=== PATIENT | female | born 1965 | race Caucasian/White ===

== ENCOUNTER 2016-06-30 08:52 | Emergency (ER) | payer MEDICAID ==
[~2016-06-30] VITALS: Ht 162.6 cm; Wt 85.7 kg
[~2016-06-30 08:52] MED LIST: XOPENEX HF0.045 MG/A IH
[2016-06-30 08:57] VITALS: BP 132/95
[2016-06-30] MEDS ORDERED: GOOD SENSE OMEP20 MG PO (09:07)
--- NOTE | 2016-06-30 09:14 | NUR ---
Patient ambulated to bed 3 with family. RN evaluating patient at bedside.
--- NOTE | 2016-06-30 09:20 | NUR ---
50/F BIB FAMILY MEMBER COULD NOT SLEEP LAST NIGHT DUE TO NECK PAIN, STS 9/10 AT THIS TIME. DESCRIBES PAIN STIFF AND UNABLE TO TURN EITHER SIDE. PT ADMITS TRIPPED GLF X 6 DAYS AGO AND HIT HEAD AGAINST TUB ON RIGHT SIDE. DENIES LOC. ALSO STS INTERMITTENT SHARP ANTERIOR CHEST WALL PAIN X 2 DAYS. HX ASTHMA, ANXIETY, ARTHRITIS, GASTRITIS. DENIES TAKING AN PAIN MEDS TODAY. DENIES FEVER. VSS. SAFETY AND COMFORT MEASURES PROVIED. ER AWARE.
--- NOTE | 2016-06-30 09:30 | NUR ---
Patient being evaluated by physician at bedside.
[2016-06-30] MEDS ORDERED: traMADol 50 MG TAB PO ONE (09:50)
[2016-06-30] MEDS ORDERED: ACETAMINOPHEN 325 MG TAB PO ONE (09:50)
[2016-06-30 10:30] VITALS: BP 139/89
--- NOTE | 2016-06-30 10:30 | NUR ---
Patient discharged with v/s stable. Written and verbal after care instructions given and explained. Patient alert, oriented and verbalized understanding of instructions. Ambulatory with steady gait with daughter. All questions addressed prior to discharge. ID band removed. Patient advised to follow up with PMD. Rx of tramadol given. Patient educated on indication of medication including possible reaction and side effects. Opportunity to ask questions provided and answered.
== END 2016-06-30 10:30 | disposition home or self-care (01) ==
LOC: MED 08:54
DX: M54.2 Cervicalgia (principal); R07.89 Other chest pain; J45.909 Unspecified asthma, uncomplicated; K21.9 Gastro-esophageal reflux disease without esophagitis

== ENCOUNTER 2019-04-12 17:16 | Emergency (ER) | payer MEDICAID ==
[~2019-04-12] VITALS: Ht 162.6 cm; Wt 85.7 kg
[~2019-04-12 17:16] MED LIST changes: +LEVA0.043 IH; +OMEP20TC12 PO; -XOPENEX HF0.045 MG/A IH
[2019-04-12 17:22] VITALS: BP 151/80
--- NOTE | 2019-04-12 17:32 | NUR ---
53/F PRESENTS TO ED WITH MOTHER, C/O R FOOT/ANKLE PAIN, S/P R FOOT INVERSION YESTERDAY AFTER GETTING UP FROM TOILET. DENIES HEAD TRAUMA. R FOOT WITH MILD SWELLING, TENDER TO TOUCH, +CMS DISTALLY. PT AWAKE AND ALERT, SKIN NORMAL COLOR WARM AND DRY, RR EVEN AND UNLABORED. HX ASTHMA, RA, ANXIETY RX VALIUM, ALBUTEROL INH AND NEB
--- NOTE | 2019-04-12 17:32 | NUR ---
PT AMBULATED WITH MINIMAL ASSIST FROM MOTHER/FAMILY
--- NOTE | 2019-04-12 17:48 | NUR ---
XRAY AT BEDSIDE
[2019-04-12 18:40] VITALS: BP 132/75
--- NOTE | 2019-04-12 18:40 | NUR ---
Patient discharged with v/s stable. Written and verbal after care instructions given and explained. Patient alert, oriented and verbalized understanding of instructions. Ambulatory with steady gait. All questions addressed prior to discharge. ID band removed. Patient advised to follow up with PMD. Rx of NORCO, IBUPROFEN given. Patient educated on indication of medication including possible reaction and side effects. Opportunity to ask questions provided and answered.
== END 2019-04-12 18:01 | disposition home or self-care (01) ==
LOC: MED 17:16
DX: S93.401A Sprain of unspecified ligament of right ankle, initial encounter (principal); J45.909 Unspecified asthma, uncomplicated; K21.9 Gastro-esophageal reflux disease without esophagitis; F41.9 Anxiety disorder, unspecified; Z79.899 Other long term (current) drug therapy; X58.XXXA Exposure to other specified factors, initial encounter; Y93.89 Activity, other specified; Y92.89 Other specified places as the place of occurrence of the external cause; Y99.8 Other external cause status
CPT/HCPCS: 73610; 73630; 99283; Q0092

== ENCOUNTER 2019-05-07 05:34 | Emergency (ER) | payer MEDICAID ==
[~2019-05-07] VITALS: Ht 160 cm; Wt 86.2 kg
[2019-05-07 05:45] VITALS: BP 151/85
[2019-05-07] MEDS ORDERED: ALBUTEROL SULFATE/IPRATROPIU 3 ML SOL IH ONE (05:55)
[2019-05-07] MEDS ORDERED: FAMOTIDINE 20 MG TAB PO ONE (05:55)
[2019-05-07] MEDS ORDERED: methylPREDNISolone SS 125 MG/2 ML VIAL IM ONE (05:55)
--- NOTE | 2019-05-07 05:56 | NUR ---
53 YO F BIB SELF PRESENTS TO ED C/O ITCHY RASH THAT HAS BEEN COMING AND GOING X 2 WEEKS. PT STATES TODAY IT SPREAD TO HER EYES AND STARTED HAVING TROUBLE BREATHING. REPORTS HX OF ASTHMA BUT HAS NOT NEEDED TO USE INHALER FOR SEVERAL MONTHS. MILD RED, RAISED HIVES NOTED TO ABDOMEN AND BACK. PERIORBITAL EDEMA NOTED. MILD INSPIRATORY WHEEZING HEARD THROUGHOUT. SPO2 98% ON RA. PT SPEAKS IN CLEAR, FULL SENTENCES. DENIES DIFFICULTY SWALLOWING. NO INCREASED WOB OR DISTRESS NOTED. SKIN NORMAL FOR ETHNICITY, WARM, DRY. DENIES PAIN, ONLY ITCHINESS. PT APPEARS MILDLY ANXIOUS. PMH-- ASTHMA, ANXIETY, ARTHRITIS
--- NOTE | 2019-05-07 06:08 | NUR ---
EMT AT BEDSIDE FOR EKG.
--- NOTE | 2019-05-07 06:16 | NUR ---
FINISH SAW OPERATOR AT BEDSIDE. BREATHING TX IN PROGRESS.
--- NOTE | 2019-05-07 06:30 | NUR ---
PT REPORTS FEELING BETTER. BREATHING EVEN, UNLABORED. SPO2 99% ON RA. LUNGS CTA. PT STATES ITCHING AND RASH RESOLVED.
[2019-05-07 07:34] VITALS: BP 148/88
--- NOTE | 2019-05-07 07:34 | NUR ---
Patient discharged with v/s stable. Written and verbal after care instructions given and explained. Patient alert, oriented and verbalized understanding of instructions. Ambulatory with steady gait. All questions addressed prior to discharge. ID band removed. Patient advised to follow up with PMD. Rx of ALBUTEROL,PEPCID,PREDNISONE,BENADRYL given. Patient educated on indication of medication including possible reaction and side effects. Opportunity to ask questions provided and answered.
== END 2019-05-07 07:34 | disposition home or self-care (01) ==
LOC: MED 05:34
DX: T78.49XA Other allergy, initial encounter (principal); J45.901 Unspecified asthma with (acute) exacerbation; K21.9 Gastro-esophageal reflux disease without esophagitis; Z79.899 Other long term (current) drug therapy
CPT/HCPCS: 71045; 93005; 94640; 96372; 99283; J2930; J7620; Q0163

== ENCOUNTER 2019-06-21 08:35 | Emergency (ER) | payer MEDICAID ==
[~2019-06-21] VITALS: Ht 162.6 cm; Wt 85.3 kg
[2019-06-21 08:38] VITALS: BP 122/82
--- NOTE | 2019-06-21 08:45 | NUR ---
AMBULATED TO BED 3 W/ STEADY GAIT
[2019-06-21] MEDS ORDERED: ALBUTEROL SULFATE/IPRATROPIU 3 ML SOL IH ONE (08:55)
[2019-06-21] MEDS ORDERED: IBUPROFEN 800 MG TAB PO ONE (08:55)
--- NOTE | 2019-06-21 09:00 | NUR ---
PT C/O INTERMITTENT ONSET RASH X 4 DAYS, STARTED IN ABDOMINAL AND INNER THIGH AREA AND SPREAD ALL OVER BODY. -FEVER, +EAR ACHE, +HEADACHE, +SORE THROAT. NO MEDS TAKEN. NO RASH NOTICE AT THIS TIME. PATIENT STATES PAIN OF 8/10 AT THIS TIME; VSS; PATIENT POSITIONED FOR COMFORT; HOB ELEVATED; BEDRAILS UP X1; BED DOWN. ER MD MADE AWARE OF PT STATUS.
[2019-06-21] MEDS ORDERED: ACETAMINOPHEN EXTRA STRENGTH 500 MG TAB PO ONE (09:25)
[2019-06-21 09:39] VITALS: BP 116/78
--- NOTE | 2019-06-21 09:39 | NUR ---
Patient discharged with v/s stable. Written and verbal after care instructions given and explained. Patient alert, oriented and verbalized understanding of instructions. Ambulatory with steady gait. All questions addressed prior to discharge. ID band removed. Patient advised to follow up with PMD. Rx of Tylenol, Azithromycin, Tylenol given. Patient educated on indication of medication including possible reaction and side effects. Opportunity to ask questions provided and answered.
== END 2019-06-21 09:39 | disposition home or self-care (01) ==
LOC: MED 08:35
DX: J02.9 Acute pharyngitis, unspecified (principal); B96.89 Other specified bacterial agents as the cause of diseases classified elsewhere; L25.9 Unspecified contact dermatitis, unspecified cause; R51 Headache; H92.01 Otalgia, right ear; J45.901 Unspecified asthma with (acute) exacerbation; K21.9 Gastro-esophageal reflux disease without esophagitis; F41.9 Anxiety disorder, unspecified; Z79.899 Other long term (current) drug therapy
CPT/HCPCS: 94640; 99283; 99284

== ENCOUNTER 2021-01-22 08:18 | Emergency (ER) | payer MEDICAID ==
[~2021-01-22] VITALS: Ht 162.6 cm; Wt 90.3 kg
[~2021-01-22 08:18] MED LIST changes: +OMEP-278 PO; -OMEP20TC12 PO
[2021-01-22 08:24] VITALS: BP 152/88
--- NOTE | 2021-01-22 08:30 | NUR ---
C/O BODY RASH X LAST NIGHT. AND C/O DARK SKIN ON FEET, AND LOWER LEGS NUMBNESS X 1 YEAR PMH: ASTHMAPT DENIES N/V/D; SKIN IS RASH, FLUSH/WARM/DRY; AAOX4, PERRL, WITH EVEN AND STEADY GAIT; LUNGS CLEAR BL, BREATHING UNLABORED; HR EVEN AND REGULAR, BL PERIPHERAL PULSES PRESENT; BS ACTIVE X4, NO TENDERNESS TO PALPATION. PT DENIES ANY FEVER, CP, SOB, OR COUGH AT THIS TIME; PT STATES 3/10 PAIN AT THIS TIME; VSS; PATIENT POSITIONED FOR COMFORT; HOB ELEVATED; BEDRAILS UP X2; BED DOWN.
[2021-01-22] MEDS ORDERED: PRED20TA5 PO (08:40)
[2021-01-22] MEDS ORDERED: BEN50 PO (08:40)
[2021-01-22 08:54] VITALS: BP 147/82
--- NOTE | 2021-01-22 08:59 | NUR ---
Patient discharged with v/s stable. Written and verbal after care instructions given and explained. Patient alert, oriented and verbalized understanding of instructions. Ambulatory with steady gait. All questions addressed prior to discharge. ID band removed. Patient advised to follow up with PMD. Rx of BENADRYL, DELTASONE given. Patient educated on indication of medication including possible reaction and side effects. Opportunity to ask questions provided and answered.
== END 2021-01-22 08:54 | disposition home or self-care (01) ==
LOC: MED 08:23
DX: R21 Rash and other nonspecific skin eruption (principal); J45.909 Unspecified asthma, uncomplicated; K21.9 Gastro-esophageal reflux disease without esophagitis; Z98.890 Other specified postprocedural states; Z79.899 Other long term (current) drug therapy
CPT/HCPCS: 99283

== ENCOUNTER 2022-09-05 20:18 | Emergency (ER) | payer MEDICAID ==
[~2022-09-05 20:18] MED LIST changes: +BEN50 PO; +PRED20TA5 PO
--- NOTE | 2022-09-05 21:30 | NUR ---
Unable to locate pt in [facility].
[2022-09-06] MEDS ORDERED: ALBU0.0912 IH ×2 (01:32→02:04)
[2022-09-06] MEDS ORDERED: FLO44 IH ×2 (01:32→02:04)
[2022-09-06] MEDS ORDERED: PRED20TA5 PO ×2 (01:32→02:04)
[2022-09-06] MEDS ORDERED: PRON INH ×2 (01:32→02:04)
== END 2022-09-05 21:30 | disposition left against medical advice (07) ==
LOC: MED 20:18
DX: Z53.21 Procedure and treatment not carried out due to patient leaving prior to being seen by health care provider (principal)
CPT/HCPCS: 99281

== ENCOUNTER 2022-09-05 23:45 | Emergency (ER) | payer MEDICAID ==
[~2022-09-05] VITALS: Ht 162.6 cm; Wt 90.7 kg
[2022-09-05 23:52] VITALS: BP 130/81
--- NOTE | 2022-09-06 00:08 | NUR ---
PT AMB TO BED #7
[2022-09-06 00:29] VITALS: BP 133/82
--- NOTE | 2022-09-06 00:38 | NUR ---
56 Y/O F PRESENTS WITH SOB, COUGH AND CONGESTION X 3DAYS WITH 10/10 PAIN. PT STATES IT FEELS LIKE PRESSURE IN CHEST WITH YELLOW FLEM. PT STATED SHE HAD FEVER AND CHILLS ON SUNDAY WITH SOME DIZZINESS AND BODYACHES. PT IS A&OX4, SKIN INTACT. PMH-ANXIETY, ASTHMA, HTN NKA
[2022-09-06] MEDS ORDERED: ALBUTEROL SULFATE/IPRATROPIU 3 ML SOL IH ONE ×2 (00:40→01:05)
[2022-09-06] MEDS ORDERED: predniSONE 20 MG TAB PO ONE (00:55)
[2022-09-06] MEDS ORDERED: PRED20TA5 PO ×2 (01:32→02:04)
[2022-09-06] MEDS ORDERED: ALBU0.0912 IH ×2 (01:32→02:04)
[2022-09-06] MEDS ORDERED: FLO44 IH ×2 (01:32→02:04)
[2022-09-06] MEDS ORDERED: PRON INH ×2 (01:32→02:04)
--- NOTE | 2022-09-06 01:56 | NUR ---
Patient discharged with v/s stable. Written and verbal after care instructions given and explained. Patient alert, oriented and verbalized understanding of instructions. Ambulatory with steady gait. All questions addressed prior to discharge. ID band removed. Patient advised to follow up with PMD. Rx of ALBUTEROL, PREDNISONE, FLOVENT given. Patient educated on indication of medication including possible reaction and side effects. Opportunity to ask questions provided and answered.
== END 2022-09-06 01:56 | disposition home or self-care (01) ==
LOC: MED 23:45
DX: J45.901 Unspecified asthma with (acute) exacerbation (principal); K21.9 Gastro-esophageal reflux disease without esophagitis; Z20.822 Contact with and (suspected) exposure to COVID-19; Z79.899 Other long term (current) drug therapy; Z98.890 Other specified postprocedural states
CPT/HCPCS: 71045; 87426; 87804; 94640; 99284; J7512; Q0092

== ENCOUNTER 2023-06-28 16:55 | Emergency (ER) | payer MEDICAID ==
[~2023-06-28] VITALS: Ht 162.6 cm; Wt 93.0 kg
[~2023-06-28 16:55] MED LIST changes: +ALBU0.0912 IH; +FLUT10.62 IH; +PRON INH
[2023-06-28 17:05] VITALS: BP 155/88; PULSE 88; RESP 16; TEMP 96.7; O2SAT 96
[2023-06-28 17:20] VITALS: PULSE 86; RESP 23; O2SAT 96
[2023-06-28] MEDS: IPRATROPIUM 0.02% 0.5 MG/2.5 ML NEBU INH ONE (17:58)
[2023-06-28] MEDS: ALBUTEROL 0.083% 2.5 MG/3 ML NEBU INH ONE (17:58)
[2023-06-28 18:10] VITALS: BP 139/80; PULSE 88; RESP 19; O2SAT 98
[2023-06-28] MEDS: NACL 0.9% 1,000 ML IV ONE (18:17)
[2023-06-28] MEDS: methylPREDNISolone SS 125 MG/2 ML VIAL IVP ONE (18:21)
[2023-06-28 18:58] LABS: BASOPHILS # (AUTO) 0.1 K/uL (0.00-0.22); EOSINOPHILS # (AUTO) 0.3 K/uL (0-0.4); EOSINOPHILS % (AUTO) 3.9 % (0.0-4.0); HEMATOCRIT 40.4 % (36-48); HEMOGLOBIN 13.7 g/dL (12.0-16.0); LYMPHOCYTES # (AUTO) 2.3 K/uL (2.5-16.5); LYMPHOCYTES % (AUTO) 31.6 % (20.5-51.1); MEAN CORPUSCULAR HEMOGLOBIN 29 pg (27-31); MEAN CORPUSCULAR HGB CONC 34 g/dL (33-37); MEAN CORPUSCULAR VOLUME 86.2 fL (80-94); MONOCYTES # (AUTO) 0.5 K/uL (0.8-1.0); MONOCYTES % (AUTO) 6.8 % (1.7-9.3); NEUTROPHILS # (AUTO) 4.2 K/uL (1.8-7.7); NEUTROPHILS % (AUTO) 56.7 % (42.2-75.2); PLATELET COUNT (AUTO) 237 K/uL (140-450); RED BLOOD CELL COUNT(AUTO) 4.68 MIL/uL (4.20-5.40); RED CELL DISTRIBUTION WIDTH 13.8 % (11.6-13.7); WHITE BLOOD COUNT (AUTO) 7.4 K/uL (4.8-10.8)
[2023-06-28 19:14] LABS: INR 0.98 (0.8-1.2); PARTIAL THROMBOPLASTIN TIME 29.7 secs (22-35.6); PROTHROMBIN TIME 10.3 secs (10.8-13.4)
[2023-06-28 19:18] LABS: ALANINE AMINOTRANSFERASE 24 U/L (12-78); ALBUMIN 3.5 g/dL (3.4-5.0); ALKALINE PHOSPHATASE 85 U/L (50-136); ASPARTATE AMINOTRANSFERASE 14 U/L (15-37); TOTAL BILIRUBIN 0.3 mg/dL (0.0-1.0); TOTAL PROTEIN, SERUM 7.2 g/dL (6.4-8.2)
[2023-06-28 19:20] LABS: ANION GAP 11.9 (8-16); CALCIUM 8.9 mg/dL (8.5-10.1); CREATININE 0.8 mg/dL (0.6-1.3); POTASSIUM 3.9 mmol/L (3.5-5.1)
[2023-06-28] MEDS ORDERED: ALBU0.0912 IH (19:36)
[2023-06-28] MEDS ORDERED: AMOX100P5 PO (19:36)
[2023-06-28] MEDS ORDERED: PRED20TA5 PO (19:36)
== END 2023-06-28 19:48 | disposition home or self-care (01) ==
LOC: MED 16:55
DX: J03.90 Acute tonsillitis, unspecified (principal); R07.89 Other chest pain; J45.909 Unspecified asthma, uncomplicated; K21.9 Gastro-esophageal reflux disease without esophagitis; I10 Essential (primary) hypertension; Z79.899 Other long term (current) drug therapy
CPT/HCPCS: 36415; 71045; 80048; 80076; 83880; 84484; 85025; 85610; 85730; 93005; 94640; 96361; 96374; 99285; J2930; J7030; J7613; J7644

== ENCOUNTER 2023-09-18 20:55 | Emergency (ER) | payer MEDICAID ==
[~2023-09-18] VITALS: Ht 162.6 cm; Wt 93.0 kg
[~2023-09-18 20:55] MED LIST changes: +AMOX100P5 PO
[2023-09-18 21:11] VITALS: BP 142/86; PULSE 92; RESP 14; TEMP 97.5; O2SAT 96
[2023-09-18 21:17] VITALS: BP 142/86; TEMP 97.5
[2023-09-18] MEDS ORDERED: [UNRECOGNIZED DRUG - CODE] TP (22:17)
[2023-09-18] MEDS ORDERED: PRED20TA5 PO (22:17)
[2023-09-18] MEDS ORDERED: LORA10TA19 PO (22:17)
[2023-09-18 22:41] VITALS: PULSE 76; RESP 18; O2SAT 100
[2023-09-18] MEDS: ALBUTEROL SULFATE/IPRATROPIU 3 ML SOL IH ONE (22:44)
== END 2023-09-18 22:47 | disposition home or self-care (01) ==
LOC: MED 20:55
DX: J45.901 Unspecified asthma with (acute) exacerbation (principal); R21 Rash and other nonspecific skin eruption; I10 Essential (primary) hypertension; Z79.1 Long term (current) use of non-steroidal anti-inflammatories (NSAID); Z79.2 Long term (current) use of antibiotics; Z79.899 Other long term (current) drug therapy
CPT/HCPCS: 94640; 99283